=== PATIENT | male | born 1980 | race Caucasian/White ===

== ENCOUNTER 2018-04-18 20:41 | Inpatient (IN) | payer OTHER ==
[~2018-04-18] VITALS: Ht 167.6 cm; Wt 77.1 kg
[2018-04-19] MEDS ORDERED: ATIVAN1 MG PO (00:53)
[2018-04-19] MEDS ORDERED: SKELAXIN800 MG PO (01:00)
[2018-04-20] MEDS ORDERED: KEPPRA500 MG PO (09:43)
== END 2018-04-20 11:14 | disposition home or self-care (01) | DRG 101 ==
LOC: ER 20:41 → SEC-K 04-19 07:14 → MEDJ 04-19 09:04
PROC: BW28ZZZ Computerized Tomography (CT Scan) of Head (ICD-10-PCS; principal; 2018-04-19)
PROC: B348ZZZ Ultrasonography of Bilateral Internal Carotid Arteries (ICD-10-PCS; 2018-04-19)
PROC: B345ZZZ Ultrasonography of Bilateral Common Carotid Arteries (ICD-10-PCS; 2018-04-19)
PROC: B246ZZZ Ultrasonography of Right and Left Heart (ICD-10-PCS; 2018-04-19)
PROC: BW38ZZZ Magnetic Resonance Imaging (MRI) of Head (ICD-10-PCS; 2018-04-19)
DX: G40.89 Other seizures (principal); R55 Syncope and collapse
CPT/HCPCS: 70551

== ENCOUNTER → 2018-04-19 | Emergency (ER) | payer OTHER ==
[~2018-04-19] MED LIST: ATIVAN1 MG PO; KEPPRA500 MG PO; SKELAXIN800 MG PO
== END | disposition left against medical advice (07) ==
LOC: ER 01:21
DX: Z53.20 Procedure and treatment not carried out because of patient's decision for unspecified reasons (principal)

== ENCOUNTER 2021-03-25 15:37 | Emergency (ER) | payer OTHER ==
[~2021-03-25] VITALS: Ht 170.2 cm; Wt 68.0 kg
== END 2021-03-25 17:02 | disposition home or self-care (01) ==
LOC: ER 15:37
DX: M12.562 Traumatic arthropathy, left knee (principal); W18.39XA Other fall on same level, initial encounter; Y93.02 Activity, running; Y92.488 Other paved roadways as the place of occurrence of the external cause

== ENCOUNTER → 2021-03-25 | Emergency (ER) | payer OTHER | END | disposition left against medical advice (07) | LOC: ER 15:41 | DX: Z53.21 Procedure and treatment not carried out due to patient leaving prior to being seen by health care provider (principal) ==